=== PATIENT | female | born 1950 | race Caucasian/White ===

== ENCOUNTER 2022-08-14 10:33 | Inpatient (IN) | payer OTHER, MEDICAID ==
[2022-08-14 11:17] LABS: #Basophils 0.1 10x3/uL (0.0-0.2); #Eosinphils 0.1 10x3/uL (0.0-0.5); #Monocytes 1.1 10x3/uL (0.0-1.1); #Neutrophils 9.5 10x3/uL (1.5-8.4); %Basophils 0.5 % (0.0-2.0); %Eosinophils 0.4 % (0.0-6.0); %Lymphocytes 20.9 % (18.0-47.0); %Monocytes 7.7 % (0.0-10.0); %Neutrophils 70.3 % (40.0-75.0); Hemoglobin 14.8 g/dL (12.0-15.5); Mean Corpuscular Hemoglobin 29.6 pg (27.0-33.0); Mean Corpuscular Volume 84.6 fl (81.6-98.3); Mean Platelet Volume 10.4 fl (7.4-10.4); Platelet Count 265 10x3/uL (150-450); RBC Distribution Width 11.9 % (11.5-14.5); White Blood Cell (WBC) Count 13.6 10x3/uL (3.5-10.5)
[2022-08-14 11:47] LABS: ALT (SGPT) 27 U/L (8-55); AST (SGOT) 45 U/L (5-34); Acetaminophen Less than 10.0 mcg/mL (10.0-30.0); Albumin 4.6 g/dL (3.4-4.8); Alcohol Less than 10 mg/dL (Less than 10); Alkaline Phosphatase 106 U/L (40-110); Anion Gap 17 mmol/L (10-20); BUN (Urea Nitrogen) 19 mg/dL (9.8-20.1); Bilirubin, Total 0.5 mg/dL (0.2-1.2); Calc. Creatinine Clearance 0 mL/min (70-130); Calcium 10.8 mg/dL (7.8-10.44); Carbon Dioxide 20 mmol/L (23-31); Chloride 104 mmol/L (98-107); Estimated GFR 45; Globulin 3.1 g/dL (2.4-3.5); Glucose 97 mg/dL (83-110); Lipase 17 U/L (8-78); Protein, Total 7.7 g/dL (5.8-8.1); Salicylate Less than 8.0 mg/dL (15.0-30.0); Sodium 137 mmol/L (136-145)
[2022-08-14 13:50] LABS: Bilirubin Neg (Negative); Blood, Urine 25 (Negative); Clarity Hazy (Clear); Glucose, Urine (Dipstick) Normal (Negative); Ketone, Urine 5 mg/dL (Negative); Leukocyte 100 (Negative); Nitrite Negative (Negative); Protein, Urine (Dipstick) 30 mg/dl (Neg-Trace); Urobilinogen Normal mg/dL (Less than 2)
[2022-08-14 13:57] LABS: Amphetamine Not Detected (NotDetected); Barbiturates Screen Not Detected (NotDetected); Benzodiazepine Screen Not Detected (NotDetected); Cocaine Metabolite Screen Not Detected (NotDetected); Methadone Not Detected (NotDetected); Methamphetamine Not Detected (NotDetected); Opiate Screen Not Detected (NotDetected); Oxycodone Screen Not Detected (NotDetected); Phencyclidine (PCP) Not Detected (NotDetected); THC/Cannabinoid Screen Not Detected (NotDetected); Tricyclic Screen Not Detected (NotDetected)
[2022-08-14 14:07] LABS: Bacteria/HPF 2+ HPF (None Seen); Mucous/LPF 2+ LPF (<2+); RBC/HPF 0-3 HPF (0-3); Squamous Epithelial 0-3 HPF (0-3)
[2022-08-14] MEDS ORDERED: Acetaminophen 325 MG TAB ONE (14:13)
[2022-08-14] MEDS ORDERED: cefTRIAXone\\ROCEPHIN 1 GM VIAL ONE (14:40)
[2022-08-14] MEDS ORDERED: Ondansetron ODT 4 MG TAB PO PRN (15:39)
[2022-08-14] MEDS ORDERED: Senokot S 8.6-50 MG TAB PO PRN (15:39)
[2022-08-14] MEDS ORDERED: Ondansetron PF 4 MG/2 ML Vial IVP PRN (15:39)
[2022-08-14] MEDS ORDERED: Nitroglycerin 0.4 MG TAB (25 Tab Bottle) SL SCH (15:45)
[2022-08-14 16:27] LABS: Troponin I Less than 0.010 ng/mL (< 0.028)
[2022-08-14 17:24] VITALS: BMI 19.8
[2022-08-14] MEDS ORDERED: ALPRAZolam 0.5 MG TAB PO SCH (17:45)
[2022-08-14 18:16] LABS: Troponin I Less than 0.010 ng/mL (< 0.028)
[2022-08-14] MEDS: Acetaminophen 325 MG TAB PO PRN (19:41)
[2022-08-14] MEDS: tiZANidine HCl 4 MG TAB PO PRN (19:41)
[2022-08-14] MEDS: Sodium Chloride 0.9% 1,000 ML IV SCH (19:43)
[2022-08-14] MEDS: QUEtiapine 100 MG TAB PO SCH (21:22)
[2022-08-14] MEDS: Atorvastatin Calcium 20 MG TAB PO SCH (21:23)
[2022-08-14] MEDS: busPIRone HCl 15 MG TAB PO SCH (21:25)
[2022-08-15 05:44] LABS: #Basophils 0.1 10x3/uL (0.0-0.2); #Eosinphils 0.1 10x3/uL (0.0-0.5); #Monocytes 0.6 10x3/uL (0.0-1.1); #Neutrophils 4.5 10x3/uL (1.5-8.4); %Basophils 0.6 % (0.0-2.0); %Eosinophils 1.8 % (0.0-6.0); %Lymphocytes 32.7 % (18.0-47.0); %Monocytes 7.6 % (0.0-10.0); Hemoglobin 13.5 g/dL (12.0-15.5); Mean Corpuscular HGB CONC 34.5 g/dL (32.0-36.0); Mean Corpuscular Hemoglobin 29.9 pg (27.0-33.0); Mean Corpuscular Volume 86.5 fl (81.6-98.3); Mean Platelet Volume 10.3 fl (7.4-10.4); Platelet Count 190 10x3/uL (150-450); RBC Distribution Width 12.3 % (11.5-14.5); Red Blood Cell (RBC) Count 4.52 10x6/uL (3.90-5.03); White Blood Cell (WBC) Count 7.8 10x3/uL (3.5-10.5)
[2022-08-15 05:57] LABS: Anion Gap 11 mmol/L (10-20); BUN (Urea Nitrogen) 24 mg/dL (9.8-20.1); Calc. Creatinine Clearance 33 mL/min (70-130); Calcium 9.6 mg/dL (7.8-10.44); Carbon Dioxide 24 mmol/L (23-31); Chloride 108 mmol/L (98-107); Estimated GFR 46; Glucose 75 mg/dL (83-110); Potassium 3.9 mmol/L (3.5-5.1); Sodium 139 mmol/L (136-145)
[2022-08-15] MEDS: Sodium Chloride 0.9% 1,000 ML IV SCH (06:05)
[2022-08-15] MEDS ORDERED: Losartan Potassium 50 MG TAB PO SCH (09:00)
[2022-08-15] MEDS: Citalopram 20 MG TAB PO SCH (10:01)
[2022-08-15] MEDS: Amlodipine 5 MG TAB PO SCH (10:01)
[2022-08-15] MEDS: Acetaminophen 325 MG TAB PO PRN ×2 (10:01→17:43)
[2022-08-15] MEDS: Cefdinir 300 MG CAP PO SCH ×2 (10:01→21:38)
[2022-08-15] MEDS: tiZANidine HCl 4 MG TAB PO PRN (10:01)
[2022-08-15] MEDS: Nicotine 21 MG PATCH TD SCH (10:02)
[2022-08-15] MEDS: busPIRone HCl 15 MG TAB PO SCH ×3 (12:43→21:38)
[2022-08-15] MEDS ORDERED: cefTRIAXone\\ROCEPHIN 1 GM in Sodium Chloride 0.9% 100 ML IVPB SCH (13:30)
[2022-08-15] MEDS: Lorazepam 0.5 MG TAB PO PRN (17:46)
[2022-08-15] MEDS: QUEtiapine 100 MG TAB PO SCH (21:38)
[2022-08-15] MEDS: Atorvastatin Calcium 20 MG TAB PO SCH (21:38)
[2022-08-16] MEDS: Lorazepam 0.5 MG TAB PO PRN ×2 (01:06→10:56)
[2022-08-16] MEDS ORDERED: Promethazine HCl 12.5 MG in Sodium Chloride 0.9% 50 ML IVPB SCH (02:45)
[2022-08-16 04:25] LABS: #Basophils 0.1 10x3/uL (0.0-0.2); #Eosinphils 0.1 10x3/uL (0.0-0.5); #Monocytes 0.5 10x3/uL (0.0-1.1); %Basophils 0.7 % (0.0-2.0); %Eosinophils 1.6 % (0.0-6.0); %Lymphocytes 33.2 % (18.0-47.0); %Monocytes 7.4 % (0.0-10.0); %Neutrophils 56.8 % (40.0-75.0); Hemoglobin 12.2 g/dL (12.0-15.5); Mean Corpuscular HGB CONC 33.9 g/dL (32.0-36.0); Mean Corpuscular Volume 85.5 fl (81.6-98.3); Mean Platelet Volume 10.3 fl (7.4-10.4); Platelet Count 178 10x3/uL (150-450); RBC Distribution Width 12.2 % (11.5-14.5); Red Blood Cell (RBC) Count 4.21 10x6/uL (3.90-5.03)
[2022-08-16 04:35] LABS: Anion Gap 11 mmol/L (10-20); BUN (Urea Nitrogen) 17 mg/dL (9.8-20.1); Calc. Creatinine Clearance 38 mL/min (70-130); Calcium 9.3 mg/dL (7.8-10.44); Carbon Dioxide 25 mmol/L (23-31); Chloride 106 mmol/L (98-107); Estimated GFR 54; Glucose 139 mg/dL (83-110); Potassium 3.4 mmol/L (3.5-5.1); Sodium 139 mmol/L (136-145)
[2022-08-16] MEDS ORDERED: Electrolyte Replacement Protocol 1 EACH FS PRN (08:09)
[2022-08-16 08:47] LABS: SARS-CoV-2 NAA Rapid Test Not Detected (NotDetected)
[2022-08-16] MEDS ORDERED: Potassium Chloride 20 MEQ TAB PO SCH ×2 (10:15→12:45)
[2022-08-16] MEDS: Acetaminophen 325 MG TAB PO PRN (10:55)
[2022-08-16] MEDS: tiZANidine HCl 4 MG TAB PO PRN (10:56)
[2022-08-16] MEDS: Citalopram 20 MG TAB PO SCH (12:42)
[2022-08-16] MEDS: Amlodipine 5 MG TAB PO SCH ×2 (12:43→12:49)
[2022-08-16] MEDS: busPIRone HCl 15 MG TAB PO SCH (12:43)
[2022-08-16] MEDS: Nicotine 21 MG PATCH TD SCH (12:44)
[2022-08-16] MEDS: Cefdinir 300 MG CAP PO SCH (12:50)
[2022-08-16] MEDS ORDERED: Cefdinir 125 MG/5 ML Oral Suspension PO SCH ×2 (13:00→21:00)
[2022-08-16 14:12] VITALS: BP 98/54; TEMP 98.4
[2022-08-16 15:45] LABS: Potassium 4.3 mmol/L (3.5-5.1)
== END 2022-08-16 15:25 | DRG 313 ==
LOC: CSHERS 10:33 → EEVIPCON 14:42 → CSHTELE 14:42 → OBSVTOIN 08-16 12:52
PROVIDERS: ADMIT Family Medicine; ATTEND Internal Medicine
DX: R07.89 Other chest pain (principal); N39.0 Urinary tract infection, site not specified; N17.9 Acute kidney failure, unspecified; F41.9 Anxiety disorder, unspecified; F43.10 Post-traumatic stress disorder, unspecified; F17.210 Nicotine dependence, cigarettes, uncomplicated; G89.29 Other chronic pain; F03.90 Unspecified dementia, unspecified severity, without behavioral disturbance, psychotic disturbance, mood disturbance, and anxiety; N18.30 Chronic kidney disease, stage 3 unspecified; E78.5 Hyperlipidemia, unspecified; I25.10 Atherosclerotic heart disease of native coronary artery without angina pectoris; I12.9 Hypertensive chronic kidney disease with stage 1 through stage 4 chronic kidney disease, or unspecified chronic kidney disease; Z20.822 Contact with and (suspected) exposure to COVID-19; Z88.0 Allergy status to penicillin; Z88.8 Allergy status to other drugs, medicaments and biological substances; Z79.899 Other long term (current) drug therapy; Z98.890 Other specified postprocedural states; Z90.710 Acquired absence of both cervix and uterus
CPT/HCPCS: 36415; 71045; 80048; 80053; 80306; 80307; 81003; 81015; 83690; 84443; 85025; 87086; 93005; 93010; 93306; 94760; 96372; 96374; 96375; G0378; J0696; J1650; J2550; J3475; J7050; U0002

== ENCOUNTER 2022-08-25 13:14 | Emergency (ER) | payer OTHER, MEDICAID ==
[2022-08-25 14:05] LABS: #Basophils 0.1 10x3/uL (0.0-0.2); #Eosinphils 0.1 10x3/uL (0.0-0.5); #Monocytes 0.8 10x3/uL (0.0-1.1); %Basophils 0.4 % (0.0-2.0); %Eosinophils 0.4 % (0.0-6.0); %Monocytes 5.5 % (0.0-10.0); %Neutrophils 79.3 % (40.0-75.0); Hemoglobin 12.8 g/dL (12.0-15.5); Mean Corpuscular Hemoglobin 29.2 pg (27.0-33.0); Mean Corpuscular Volume 85.6 fl (81.6-98.3); Mean Platelet Volume 10.2 fl (7.4-10.4); Platelet Count 194 10x3/uL (150-450); RBC Distribution Width 12.5 % (11.5-14.5); Red Blood Cell (RBC) Count 4.39 10x6/uL (3.90-5.03); White Blood Cell (WBC) Count 13.9 10x3/uL (3.5-10.5)
[2022-08-25] MEDS ORDERED: Ipratropium/Albuterol 3 ML NEB ONE (14:10)
[2022-08-25] MEDS ORDERED: Ketorolac Tromethamine 30 MG/ML VIAL ONE (14:11)
[2022-08-25] MEDS ORDERED: methylPREDNISolone Sod Succ/PF 125 MG/2 ML VIAL ONE (14:11)
[2022-08-25 14:18] LABS: ALT (SGPT) 21 U/L (8-55); AST (SGOT) 24 U/L (5-34); Albumin 3.7 g/dL (3.4-4.8); Alkaline Phosphatase 87 U/L (40-110); Anion Gap 14 mmol/L (10-20); BUN (Urea Nitrogen) 11 mg/dL (9.8-20.1); Bilirubin, Total 0.3 mg/dL (0.2-1.2); Calc. Creatinine Clearance 0 mL/min (70-130); Calcium 9.6 mg/dL (7.8-10.44); Carbon Dioxide 21 mmol/L (23-31); Chloride 107 mmol/L (98-107); Estimated GFR 60; Globulin 3.1 g/dL (2.4-3.5); Glucose 110 mg/dL (83-110); Potassium 3.7 mmol/L (3.5-5.1); Protein, Total 6.8 g/dL (5.8-8.1); Sodium 138 mmol/L (136-145)
[2022-08-25 16:35] LABS: Troponin I Less than 0.010 ng/mL (< 0.028)
== END 2022-08-25 17:05 | disposition home or self-care (01) ==
LOC: CSHERS 13:14
DX: J44.1 Chronic obstructive pulmonary disease with (acute) exacerbation (principal); R07.9 Chest pain, unspecified; D72.829 Elevated white blood cell count, unspecified; F17.210 Nicotine dependence, cigarettes, uncomplicated
CPT/HCPCS: 36415; 71045; 80053; 84484; 85025; 93005; 94760; 96374; 96375; J1885; J2930; J7620

== ENCOUNTER 2022-09-19 14:03 | Emergency (ER) | payer MEDICAID, OTHER ==
[2022-09-19 14:45] LABS: #Basophils 0.1 10x3/uL (0.0-0.2); #Eosinphils 0.1 10x3/uL (0.0-0.5); #Monocytes 0.7 10x3/uL (0.0-1.1); #Neutrophils 12.1 10x3/uL (1.5-8.4); %Basophils 0.5 % (0.0-2.0); %Eosinophils 0.8 % (0.0-6.0); %Lymphocytes 13.8 % (18.0-47.0); %Monocytes 4.3 % (0.0-10.0); %Neutrophils 80.2 % (40.0-75.0); Mean Corpuscular HGB CONC 32.1 g/dL (32.0-36.0); Mean Corpuscular Volume 90.3 fl (81.6-98.3); Mean Platelet Volume 10.3 fl (7.4-10.4); Platelet Count 206 10x3/uL (150-450); RBC Distribution Width 15.4 % (11.5-14.5); Red Blood Cell (RBC) Count 4.14 10x6/uL (3.90-5.03)
[2022-09-19 14:55] LABS: ALT (SGPT) 25 U/L (8-55); AST (SGOT) 22 U/L (5-34); Albumin 3.9 g/dL (3.4-4.8); Alkaline Phosphatase 87 U/L (40-110); Anion Gap 15 mmol/L (10-20); BUN (Urea Nitrogen) 10 mg/dL (9.8-20.1); Bilirubin, Total 0.4 mg/dL (0.2-1.2); Calc. Creatinine Clearance 0 mL/min (70-130); Calcium 9.3 mg/dL (7.8-10.44); Carbon Dioxide 22 mmol/L (23-31); Chloride 107 mmol/L (98-107); Estimated GFR 57; Globulin 2.5 g/dL (2.4-3.5); Glucose 84 mg/dL (83-110); Lipase 10 U/L (8-78); Magnesium 1.9 mg/dL (1.6-2.6); Potassium 3.8 mmol/L (3.5-5.1); Protein, Total 6.4 g/dL (5.8-8.1); Sodium 140 mmol/L (136-145)
[2022-09-19] MEDS ORDERED: Ondansetron PF 4 MG/2 ML Vial ONE (15:21)
[2022-09-19] MEDS ORDERED: HYDROmorphone 0.5 MG/0.5 ML SYRINGE ONE (15:22)
[2022-09-19] MEDS ORDERED: Iopamidol 300 61% 100 ML VIAL FS ONE (18:15)
== END 2022-09-19 18:36 | disposition home or self-care (01) ==
LOC: CSHERS 14:03
DX: R10.13 Epigastric pain (principal); I10 Essential (primary) hypertension; F17.210 Nicotine dependence, cigarettes, uncomplicated
CPT/HCPCS: 36415; 71045; 74177; 80053; 83690; 83735; 84484; 85025; 93005; 96374; 96375; J1170; J2405; Q9967

== ENCOUNTER 2024-09-10 09:09 | Emergency (ER) | payer OTHER ==
[2024-09-10 09:37] LABS: #Basophils 0.03 10x3/uL (0.0-0.2); #Eosinophils 0.04 10x3/uL (0.0-0.5); #Monocytes 0.53 10x3/uL (0.0-1.1); %Basophils 0.4 % (0.0-2.0); %Eosinophils 0.6 % (0.0-6.0); %Lymphocytes 13.5 % (18.0-47.0); %Monocytes 7.5 % (0.0-10.0); %Neutrophils 77.4 % (40.0-75.0); Hematocrit 34.9 % (34.9-44.5); Hemoglobin 11.3 g/dL (12.0-15.5); Mean Corpuscular HGB CONC 32.4 g/dL (32.0-36.0); Mean Corpuscular Hemoglobin 30.7 pg (27.0-33.0); Mean Corpuscular Volume 94.8 fL (81.6-98.3); Mean Platelet Volume 10.1 fL (7.4-10.4); Platelet Count 184 10x3/uL (150-450); RBC Distribution Width 14.1 % (11.5-14.5); Red Blood Cell (RBC) Count 3.68 10x6/uL (3.90-5.03)
[2024-09-10] MEDS ORDERED: Acetaminophen 325 MG TAB ONE (09:48)
[2024-09-10] MEDS ORDERED: Sucralfate 1 GM/10 ML UDCUP ONE (09:48)
[2024-09-10 09:53] LABS: ALT (SGPT) 16 U/L (Less than 34); AST (SGOT) 16 U/L (11-34); Albumin 2.9 g/dL (3.1-4.5); Alkaline Phosphatase 59 U/L (40-110); Anion Gap 10 mmol/L (10-20); BUN (Urea Nitrogen) 8 mg/dL (9.8-20.1); Bilirubin, Total 0.7 mg/dL (0.3-1.2); Calc. Creatinine Clearance 0 mL/min (70-130); Calcium 8.5 mg/dL (7.8-10.44); Carbon Dioxide 22 mmol/L (23-31); Chloride 112 mmol/L (98-107); Estimated GFR 59; Globulin 2.2 g/dL (2.4-3.5); Glucose 100 mg/dL (83-110); Lipase 12 U/L (8-78); Potassium 3.6 mmol/L (3.5-5.1); Protein, Total 5.1 g/dL (5.8-8.1); Sodium 140 mmol/L (136-145)
[2024-09-10 09:57] LABS: Troponin I Less than 0.010 ng/mL (< 0.028)
== END 2024-09-10 12:48 | disposition home or self-care (01) ==
LOC: CSHERS 09:09
DX: J90 Pleural effusion, not elsewhere classified (principal); J44.9 Chronic obstructive pulmonary disease, unspecified; I10 Essential (primary) hypertension; E78.00 Pure hypercholesterolemia, unspecified; F17.210 Nicotine dependence, cigarettes, uncomplicated; Z79.899 Other long term (current) drug therapy
CPT/HCPCS: 36415; 71045; 80053; 83690; 84484; 85025; 93005